=== PATIENT | male | born 1975 | race Two or more races ===

== ENCOUNTER 2019-03-04 14:52 | Emergency (ER) | payer SELFPAY ==
[~2019-03-04] VITALS: Ht 188 cm; Wt 172.0 kg
[2019-03-04 15:15] VITALS: BP 134/89
== END 2019-03-04 17:50 | disposition left against medical advice (07) ==
LOC: ER 14:52
DX: M79.673 Pain in unspecified foot (principal); Z53.21 Procedure and treatment not carried out due to patient leaving prior to being seen by health care provider